=== PATIENT | female | born 1945 | race Caucasian/White ===

== ENCOUNTER → 2016-06-27 | Outpatient (CLI) | payer MEDICARE ==
[~2016-06-27] MED LIST: GABA300C10 PO; LEVO88TA4 PO; LISI-167 PO; SIMV20TA3 PO
[2016-06-27 11:24] LABS: ASPARTATE AMINO TRANSFERASE 15 U/L (15-37); BLOOD UREA NITROGEN 19 mg/dL (7-18)
== END | disposition home or self-care (01) ==
LOC: STAR 09:55
PROVIDERS: ATTEND Neurological Surgery
DX: Z01.818 Encounter for other preprocedural examination (principal); M41.84 Other forms of scoliosis, thoracic region; M50.30 Other cervical disc degeneration, unspecified cervical region; R79.1 Abnormal coagulation profile
CPT/HCPCS: 36415; 71020; 80053; 81003; 85025; 85610; 85730; 93005

== ENCOUNTER 2016-07-05 06:49 | Inpatient (IN) | payer MEDICARE ==
[2016-06-27 10:37] VITALS: BP 138/80
[~2016-07-05] VITALS: Ht 157.5 cm; Wt 69.1 kg
[~2016-07-05 06:49] MED LIST changes: +BACITRACIN 50,000 UNIT ONE; +BUPIVACAINE/PF-EPI 0.5% 1:200K ONE; +THROMBIN 5,000 UNIT VIAL TP ONE
[2016-07-05] MEDS ORDERED: LACTATED RINGERS 1,000 ML IV SCH (07:06)
[2016-07-05] MEDS ORDERED: ALPR0.25 PO (07:09)
[2016-07-05] MEDS ORDERED: LIDOCAINE 1%, 2ML ONE (07:24)
[2016-07-05] MEDS ORDERED: LIDOCAINE 1%, 2ML SQ PRN (08:00)
[2016-07-05] MEDS ORDERED: OXYcodone 5 MG/5 ML ORAL.SOL UDC ONE (11:58)
[2016-07-05] MEDS ORDERED: CYCLOBENZAPRINE 10 MG TABLET ONE (11:58)
[2016-07-05] MEDS ORDERED: ONDANSETRON 2MG/ML, 2ML IVPush PRN ×2 (12:00→12:30)
[2016-07-05] MEDS ORDERED: PHARMACY MAY ADJ FOR RENAL FX MC PRN (12:00)
[2016-07-05] MEDS ORDERED: METHOCARBAMOL 750 MG TABLET PO PRN (12:00)
[2016-07-05] MEDS ORDERED: BISACODYL 10 MG SUPP PR PRN (12:00)
[2016-07-05] MEDS ORDERED: SENNA/DOCUSATE TABLET PO PRN (12:00)
[2016-07-05] MEDS ORDERED: PROMETHAZINE 25 MG/ML, 1ML IM PRN (12:00)
[2016-07-05] MEDS ORDERED: OXYcodone/APAP 5/325MG TABLET PO PRN (12:00)
[2016-07-05] MEDS ORDERED: HYDROcodone/APAP 5/325 TABLET PO PRN (12:00)
[2016-07-05] MEDS ORDERED: methylPREDNISolone *ACETATE* 40 MG/ML IM ONE ×2 (12:00)
[2016-07-05] MEDS ORDERED: morphine SULFATE 10 MG/ML, 1ML IVPush PRN (12:00)
[2016-07-05] MEDS: CYCLOBENZAPRINE 10 MG TABLET PO PRN ×2 (12:03→21:14)
[2016-07-05] MEDS ORDERED: methylPREDNISolone *ACETATE* 40 MG/ML ONE (12:06)
[2016-07-05] MEDS ORDERED: FENTANYL PF 100 MCG/2ML ONE (12:16)
[2016-07-05] MEDS ORDERED: HYDROmorphone 1 MG/ML, 1ML ONE (12:16)
[2016-07-05] MEDS: HYDROmorphone 1 MG/ML, 1ML IV PRN ×2 (12:17→12:23)
[2016-07-05] MEDS: FENTANYL PF 100 MCG/2ML IV PRN ×2 (12:18→12:23)
[2016-07-05] MEDS ORDERED: OXYcodone 5 MG/5 ML ORAL.SOL UDC PO PRN (12:30)
[2016-07-05] MEDS ORDERED: PROMETHAZINE 25 MG/ML, 1ML IV PRN (12:30)
[2016-07-05] MEDS ORDERED: LABETALOL 5MG/ML, 20ML IV PRN (12:30)
[2016-07-05] MEDS ORDERED: hydrALAzine 20 MG/ML, 1ML IV PRN (12:30)
[2016-07-05 13:37] VITALS: BP 143/65
[2016-07-05] MEDS: D5%-0.9% NACL+KCL 20MEQ 1,000 ML IV SCH (14:26)
[2016-07-05] MEDS: CEFAZOLIN PMX 1GM/50ML 50 ML IVPB SCH ×2 (14:26→23:06)
[2016-07-05] MEDS ORDERED: SUCCINYLCHOLINE 20 MG/ML, 10ML ONE (15:39)
[2016-07-05] MEDS ORDERED: ONDANSETRON 2MG/ML, 2ML ONE (15:39)
[2016-07-05] MEDS ORDERED: CEFAZOLIN 1,000 MG ONE (15:39)
[2016-07-05] MEDS ORDERED: PROPOFOL 10 MG/ML, 50ML ONE (15:39)
[2016-07-05] MEDS ORDERED: DEXAMETHASONE 4 MG/ML, 1ML ONE (15:39)
[2016-07-05] MEDS ORDERED: METOCLOPRAMIDE 5 MG/ML, 2ML ONE (15:39)
[2016-07-05] MEDS ORDERED: PROPOFOL 10 MG/ML, 20ML ONE (15:39)
[2016-07-05] MEDS: HYDROcodone/APAP 10/325 MG TABLET PO PRN ×2 (17:01→21:03)
[2016-07-05 19:31] VITALS: BP 102/59
[2016-07-05] MEDS: SODIUM CHLORIDE FLUSH 10ML SYR IVF SCH (21:02)
[2016-07-05] MEDS: GABAPENTIN 300 MG CAPSULE PO SCH (21:02)
[2016-07-05] MEDS: SIMVASTATIN 20 MG TABLET PO SCH (21:03)
[2016-07-06 00:40] VITALS: BP 99/55
[2016-07-06 04:35] VITALS: BP 113/55
[2016-07-06] MEDS: D5%-0.9% NACL+KCL 20MEQ 1,000 ML IV SCH ×2 (04:56→16:40)
[2016-07-06] MEDS: CYCLOBENZAPRINE 10 MG TABLET PO PRN (04:56)
[2016-07-06] MEDS: HYDROcodone/APAP 10/325 MG TABLET PO PRN ×3 (04:56→15:44)
[2016-07-06] MEDS: LEVOTHYROXINE 88 MCG TABLET PO SCH (05:00)
[2016-07-06 07:24] VITALS: BP 111/57
[2016-07-06] MEDS: LISINOPRIL 10 MG TABLET PO SCH (09:00)
[2016-07-06] MEDS: SODIUM CHLORIDE FLUSH 10ML SYR IVF SCH ×2 (09:06→20:32)
[2016-07-06 14:00] VITALS: BP 119/51
[2016-07-06] MEDS: DEXAMETHASONE 4 MG/ML, 1ML IVPush SCH (18:25)
[2016-07-06 19:43] VITALS: BP_SYST 93; BP_SYST 95; BP_DIAS 56
[2016-07-06] MEDS: GABAPENTIN 300 MG CAPSULE PO SCH (20:33)
[2016-07-06] MEDS: SIMVASTATIN 20 MG TABLET PO SCH (20:33)
[2016-07-06 20:40] VITALS: BP 114/61
[2016-07-07] MEDS: DEXAMETHASONE 4 MG/ML, 1ML IVPush SCH ×5 (00:12→23:58)
[2016-07-07 00:21] VITALS: BP 116/65
[2016-07-07 00:28] VITALS: BP_SYST 94; BP_SYST 95; BP_DIAS 54; BP_DIAS 56
[2016-07-07] MEDS: LEVOTHYROXINE 88 MCG TABLET PO SCH (05:37)
[2016-07-07] MEDS: D5%-0.9% NACL+KCL 20MEQ 1,000 ML IV SCH ×2 (05:39→21:07)
[2016-07-07 06:45] VITALS: BP 116/61
[2016-07-07 08:06] VITALS: BP 136/66
[2016-07-07] MEDS: SODIUM CHLORIDE FLUSH 10ML SYR IVF SCH ×2 (08:09→20:39)
[2016-07-07 13:01] VITALS: BP 146/75
[2016-07-07] MEDS: GABAPENTIN 300 MG CAPSULE PO SCH (20:39)
[2016-07-07] MEDS: LISINOPRIL 10 MG TABLET PO SCH (20:40)
[2016-07-07] MEDS: SIMVASTATIN 20 MG TABLET PO SCH (20:40)
[2016-07-07 20:58] VITALS: BP 116/66
[2016-07-08 01:58] VITALS: BP 111/57
[2016-07-08] MEDS: DEXAMETHASONE 4 MG/ML, 1ML IVPush SCH ×4 (05:25→23:31)
[2016-07-08] MEDS: LEVOTHYROXINE 88 MCG TABLET PO SCH (05:26)
[2016-07-08 07:14] VITALS: BP 133/77
[2016-07-08] MEDS ORDERED: hydrALAzine 20 MG/ML, 1ML IV PRN (08:30)
[2016-07-08] MEDS: LISINOPRIL 10 MG TABLET PO SCH (09:00)
[2016-07-08] MEDS: D5%-0.9% NACL+KCL 20MEQ 1,000 ML IV SCH ×2 (09:41→23:31)
[2016-07-08] MEDS: SODIUM CHLORIDE FLUSH 10ML SYR IVF SCH ×2 (09:42→20:32)
[2016-07-08] MEDS: LEVOTHYROXINE 100 MCG INJ IV SCH (09:42)
[2016-07-08] MEDS: PANTOPRAZOLE 40 MG IV IVPush SCH (09:42)
[2016-07-08 13:15] VITALS: BP 158/71
[2016-07-08 19:00] VITALS: BP 155/71
[2016-07-08] MEDS: SIMVASTATIN 20 MG TABLET PO SCH (21:00)
[2016-07-08] MEDS: GABAPENTIN 300 MG CAPSULE PO SCH (21:00)
[2016-07-08] MEDS: DIPHENHYDRAMINE 50 MG/ML, 1ML IVPush PRN (22:03)
[2016-07-09 02:21] VITALS: BP 135/65
[2016-07-09] MEDS: DEXAMETHASONE 4 MG/ML, 1ML IVPush SCH ×4 (05:28→23:45)
[2016-07-09] MEDS: LEVOTHYROXINE 88 MCG TABLET PO SCH (05:29)
[2016-07-09 07:24] VITALS: BP 146/77
[2016-07-09] MEDS: SODIUM CHLORIDE FLUSH 10ML SYR IVF SCH ×2 (07:28→20:46)
[2016-07-09] MEDS: LISINOPRIL 10 MG TABLET PO SCH (09:58)
[2016-07-09] MEDS ORDERED: PVN PER PHARMACY MC PRN (10:00)
[2016-07-09] MEDS: PANTOPRAZOLE 40 MG IV IVPush SCH (10:04)
[2016-07-09] MEDS: LEVOTHYROXINE 100 MCG INJ IV SCH (10:07)
[2016-07-09] MEDS: D5%-0.9% NACL+KCL 20MEQ 1,000 ML IV SCH (12:12)
[2016-07-09 12:24] LABS: ASPARTATE AMINO TRANSFERASE 9 U/L (15-37); BLOOD UREA NITROGEN 25 mg/dL (7-18)
[2016-07-09 13:51] VITALS: BP 155/68
[2016-07-09] MEDS ORDERED: AMINO ACID 10% IV SCH (17:00)
[2016-07-09] MEDS ORDERED: DEXTROSE 70% IV SCH (17:00)
[2016-07-09] MEDS ORDERED: DEXTROSE 10% 500 ML IV PRN (17:00)
[2016-07-09] MEDS ORDERED: DEXTROSE 50%, 50ML SYRINGE IVPush PRN (17:00)
[2016-07-09] MEDS ORDERED: FAT EMULSIONS IV SCH (17:00)
[2016-07-09] MEDS ORDERED: [UNRECOGNIZED DRUG - OTHER] IV SCH (17:00)
[2016-07-09] MEDS: FILTER, DISP 1.2 MICRON FOR TPN/PVN IV PRN (17:28)
[2016-07-09 18:53] VITALS: BP 152/58
[2016-07-09] MEDS: SIMVASTATIN 20 MG TABLET PO SCH (20:46)
[2016-07-09] MEDS: GABAPENTIN 300 MG CAPSULE PO SCH (20:46)
[2016-07-09] MEDS: INSULIN REGULAR LOW DOSE Q6H X 48HRS SQ-INSULIN SCH (20:47)
[2016-07-09] MEDS: DIPHENHYDRAMINE 50 MG/ML, 1ML IVPush PRN (22:09)
[2016-07-10 01:49] VITALS: BP 140/61
[2016-07-10] MEDS: INSULIN REGULAR LOW DOSE Q6H X 48HRS SQ-INSULIN SCH ×4 (03:09→20:51)
[2016-07-10 05:20] LABS: BLOOD UREA NITROGEN 22 mg/dL (7-18)
[2016-07-10] MEDS: LEVOTHYROXINE 88 MCG TABLET PO SCH (05:36)
[2016-07-10] MEDS: DEXAMETHASONE 4 MG/ML, 1ML IVPush SCH ×4 (05:36→23:31)
[2016-07-10 07:07] VITALS: BP 138/64
[2016-07-10] MEDS: SODIUM CHLORIDE FLUSH 10ML SYR IVF SCH ×2 (09:17→20:51)
[2016-07-10] MEDS: LISINOPRIL 10 MG TABLET PO SCH (09:18)
[2016-07-10] MEDS: PANTOPRAZOLE 40 MG IV IVPush SCH (09:39)
[2016-07-10] MEDS: LEVOTHYROXINE 100 MCG INJ IV SCH (09:40)
[2016-07-10 15:36] VITALS: BP 148/78
[2016-07-10] MEDS ORDERED: DEXTROSE 70% IV SCH (17:00)
[2016-07-10] MEDS ORDERED: [UNRECOGNIZED DRUG - OTHER] IV SCH (17:00)
[2016-07-10] MEDS ORDERED: FAT EMULSIONS IV SCH (17:00)
[2016-07-10] MEDS ORDERED: AMINO ACID 10% IV SCH (17:00)
[2016-07-10] MEDS: FILTER, DISP 1.2 MICRON FOR TPN/PVN IV PRN (17:24)
[2016-07-10 20:37] VITALS: BP 136/68
[2016-07-10] MEDS: GABAPENTIN 300 MG CAPSULE PO SCH (20:51)
[2016-07-10] MEDS: SIMVASTATIN 20 MG TABLET PO SCH (20:52)
[2016-07-10] MEDS: DIPHENHYDRAMINE 50 MG/ML, 1ML IVPush PRN (22:05)
[2016-07-11 02:55] VITALS: BP 141/72
[2016-07-11] MEDS: INSULIN REGULAR LOW DOSE Q6H X 48HRS SQ-INSULIN SCH ×4 (02:57→22:40)
[2016-07-11] MEDS: DEXAMETHASONE 4 MG/ML, 1ML IVPush SCH ×3 (05:20→22:10)
[2016-07-11] MEDS: LEVOTHYROXINE 88 MCG TABLET PO SCH (05:22)
[2016-07-11 05:31] LABS: BLOOD UREA NITROGEN 24 mg/dL (7-18)
[2016-07-11] MEDS: SODIUM CHLORIDE FLUSH 10ML SYR IVF SCH ×2 (09:00→22:10)
[2016-07-11 09:46] VITALS: BP 138/66
[2016-07-11] MEDS: LEVOTHYROXINE 100 MCG INJ IV SCH (09:56)
[2016-07-11] MEDS: LISINOPRIL 10 MG TABLET PO SCH (09:57)
[2016-07-11] MEDS: PANTOPRAZOLE 40 MG IV IVPush SCH (09:57)
[2016-07-11] MEDS ORDERED: FAT EMULSIONS IV SCH ×2 (10:00→17:00)
[2016-07-11] MEDS ORDERED: DEXTROSE 70% IV SCH ×2 (10:00→17:00)
[2016-07-11] MEDS ORDERED: [UNRECOGNIZED DRUG - OTHER] IV SCH ×2 (10:00→17:00)
[2016-07-11] MEDS ORDERED: AMINO ACID 10% IV SCH ×2 (10:00→17:00)
[2016-07-11 13:20] VITALS: BP 137/62
[2016-07-11] MEDS: FILTER, DISP 1.2 MICRON FOR TPN/PVN IV PRN (16:54)
[2016-07-11 19:48] VITALS: BP 132/74
[2016-07-11] MEDS: GABAPENTIN 300 MG CAPSULE PO SCH (21:00)
[2016-07-11] MEDS: SIMVASTATIN 20 MG TABLET PO SCH (22:10)
[2016-07-12 03:34] VITALS: BP 152/72
[2016-07-12] MEDS: INSULIN REGULAR LOW DOSE Q6H X 48HRS SQ-INSULIN SCH (04:23)
[2016-07-12] MEDS: LEVOTHYROXINE 88 MCG TABLET PO SCH (05:37)
[2016-07-12] MEDS: DEXAMETHASONE 4 MG/ML, 1ML IVPush SCH (05:37)
[2016-07-12 06:19] LABS: BLOOD UREA NITROGEN 26 mg/dL (7-18)
[2016-07-12 08:05] VITALS: BP 139/65
[2016-07-12] MEDS ORDERED: CEPH-368 PO (08:46)
[2016-07-12] MEDS ORDERED: CYCL-259 PO (08:46)
[2016-07-12] MEDS ORDERED: METH4TAB2 PO (08:47)
[2016-07-12] MEDS ORDERED: TRAM50TA2 PO (08:47)
[2016-07-12] MEDS: LEVOTHYROXINE 100 MCG INJ IV SCH (09:00)
[2016-07-12] MEDS ORDERED: INSULIN REGULAR, HUMAN 100 UNITS/ML, 3ML MEDIUM DOSE SS SQ-INSULIN SCH (09:00)
[2016-07-12] MEDS: LISINOPRIL 10 MG TABLET PO SCH (09:00)
[2016-07-12] MEDS: SODIUM CHLORIDE FLUSH 10ML SYR IVF SCH (09:00)
[2016-07-12] MEDS ORDERED: INSULIN REGULAR LOW DOSE QDAY SQ-INSULIN SCH (09:00)
[2016-07-12] MEDS: PANTOPRAZOLE 40 MG IV IVPush SCH (09:06)
[2016-07-12 10:17] VITALS: BP 159/91
[2016-07-12] MEDS ORDERED: FAT EMULSIONS IV SCH (17:00)
[2016-07-12] MEDS ORDERED: DEXTROSE 70% IV SCH (17:00)
[2016-07-12] MEDS ORDERED: AMINO ACID 10% IV SCH (17:00)
[2016-07-12] MEDS ORDERED: [UNRECOGNIZED DRUG - OTHER] IV SCH (17:00)
[2016-07-12] MEDS ORDERED: FILTER, DISP 1.2 MICRON FOR TPN/PVN IV PRN (17:00)
== END 2016-07-12 10:40 | disposition home or self-care (01) | DRG 472 ==
LOC: ORIP 06:49 → 4NOR 13:08 → DCLOUNGE 07-12 10:23
PROVIDERS: ADMIT Neurological Surgery; ATTEND Neurological Surgery
PROC: 0RG20A0 Fusion of 2 or more Cervical Vertebral Joints with Interbody Fusion Device, Anterior Approach, Anterior Column, Open Approach (ICD-10-PCS; 2016-07-05)
PROC: 4A11X4G Monitoring of Peripheral Nervous Electrical Activity, Intraoperative, External Approach (ICD-10-PCS; 2016-07-05)
PROC: 0RB30ZZ Excision of Cervical Vertebral Disc, Open Approach (ICD-10-PCS; principal; 2016-07-05 10:00)
DX: M48.02 Spinal stenosis, cervical region (principal); M50.01 Cervical disc disorder with myelopathy, high cervical region; R13.10 Dysphagia, unspecified; M54.12 Radiculopathy, cervical region; J45.909 Unspecified asthma, uncomplicated; G89.29 Other chronic pain; Z90.710 Acquired absence of both cervix and uterus; Z83.3 Family history of diabetes mellitus; Z82.61 Family history of arthritis; Z82.0 Family history of epilepsy and other diseases of the nervous system; Z88.8 Allergy status to other drugs, medicaments and biological substances
CPT/HCPCS: 36415; 72040; 74230; 80048; 80053; 82962; 83735; 84100; 84134; 84478; 86850; 86900; C1713; J0610; J0690; J1100; J1170; J1644; J1815; J2405; J2704; J3010; J3475; J3480; C1762; C1778; C9113; J0330; J1030; J1200; J1720; J2765; J3420; J7120